=== PATIENT | female | born 1950 | race Caucasian/White ===

== ENCOUNTER 2018-11-10 05:35 | Day surgery (SDC) | payer MEDICARE, OTHER ==
[2018-11-06 11:53] LABS: BASOPHILS 0.6 % (0-2); EOSINOPHILS 3.2 % (0-7); HEMATOCRIT 41.9 % (36.0-48.0); HEMOGLOBIN 14.3 g/dL (12-16); IMMATURE GRANULOCYTES 0.1 % (0-5); MCH 31.3 pg (26.0-34.0); MCHC 34.1 g/dL (31.0-37.0); MCV 91.7 fL (80.0-100.0); MEAN PLATELET VOLUME 11.3 fL (7.4-10.4); MONOCYTES 5.5 % (2-11); NEUTROPHILS 56.6 % (40-80); PLATELET COUNT 260 10x3/uL (130-400); RBC 4.57 10x6/uL (4.00-5.40); WBC 7.1 10x3/uL (4.8-10.8)
[2018-11-06 12:02] LABS: ANION GAP 10.8 mmol/L (8-16); CALCIUM 9.2 mg/dL (8.5-10.1); CREATININE - SERUM 0.9 mg/dL (0.6-1.3); POTASSIUM - SERUM 3.8 mmol/L (3.5-5.1)
[~2018-11-10] VITALS: Ht 157.5 cm; Wt 62.3 kg
[2018-11-10] VITALS (7 sets, daily range): BP systolic 112–132; BP diastolic 64–71; Ht 157.5 cm; Wt 62.3 kg
[~2018-11-10 05:35] MED LIST: LISINOPRIL10 MG PO; ORACEA40 MG PO; TRAZODONE HYDROCHLOR PO
[2018-11-10] MEDS ORDERED: MACROBID100 MG PO (06:23)
--- NOTE | 2018-11-10 12:38 | NUR ---
ATTEMPTED TO CALL REPORT TO [facility]. CHARGE NURSE STATED THERE WERE NO BEDS AVAILABLE AT THE MOMENT.
--- NOTE | 2018-11-10 13:30 | NUR ---
RECEIVED PT FROM POST A & P REPAIR BY DR. MOSQUEDA. PT IS TRANSFERRED TO BED FROM STRETCHER, WITH MINIMAL ASSIST. PT'S ABODMEN PALPATES SOFT. SCANT DARK RED VAG BLEEDING NOTED ON CHUX THAT WAS ON STRETCHER, UPON TRANSFER TO BED IN #1257. PT HAS BORDEN CATH IN PLACE DRAINING BLUE URINE, SCD'S ON. PT DENIES NAUSEA, OR SOB, OR DIFFICULTY BREATHING. VS STABLE. SEE FLOWSHEET FOR ASSESSMENT. PT RATING PAIN 3/10, TO VAGINAL/SUPRAPUBIC AREA, DESCRIBES PRESSURE/PULLING PAIN. EXPLAINED TO PT WILL REVIEW MED ADM ORDERS. ORIENTED TO ROOM, SR UP X 2, CALL LIGHT AND PHONE WITHIN REACH. REPORT GIVEN TO Avery LIU RN ASSUMING CARE OF PT.
--- NOTE | 2018-11-10 14:00 | NUR ---
REC'D PT AA&O X 4. PAIN ASSESSED. PT RATES PAIN 2/10. DENIES NEEDING PAIN INTERVENTIONS AT THIS TIME. BREATHSOUNDS CL/=, ABD SOFT, NON DISTENDED,BOWEL SOUNDS PRESENT X4. BORDEN CATH IN PLACE AND DRAINING VIA GRAVITY. APPROX 250ML BLUE COLORED URINE NOTED IN UROMETER. AMOUNT EMPTIED IN TO BORDEN FOR A TOTAL OF 500ML IN BAG CURRENTLY. PEDAL PULSES PRESENT X 2. PT CURRENTLY HAS SCD WEAPS IN PLACE BILATERALLY. WRAPS CONNECTED TO PUMP. PUMP TURNED ON AND FUNCTIONING. T/C/D AND INCENTIVE SPIROTMER TEACHING GIVEN. PT VEBALZIES UNDERSTANDING AND AGREEABLE. POC DISCUSSED W/PT. FRESH ICE CHIPS SERVED. FAMILY TO BEDSIDE. BED LOW, SIDE RAILS UP X 2. CALL LIGHT AND PHONE AT PT'S BEDSIDE.
--- NOTE | 2018-11-10 14:15 | NUR ---
PT LYING AWAKE IN BED VISITING W/GUESTS. DENIES PAIN OR NEEDS AT THIS TIME.
--- NOTE | 2018-11-10 15:31 | NUR ---
PT RINGS CALL LIGHT REPORTING INCREASED PAIN. REQUEST PAIN MEDICATION. 1MG DILUADID GIVEN SIVP. DENIES FURTHER NEEDS AT THIS TIME. REPORTS SHE HAD BEEN PERFORMING I.S. AND ABLE TO PULL 1400 W/ACKNOWLEGEMENT OF GOAL OF 1999.
--- NOTE | 2018-11-10 16:30 | NUR ---
ROUNDS MADE. PT REPORTS PAIN LEVEL IS BACK TO 2/10. DENIES NEEDS. APPROX 225ML BLUE URINE NOTED IN UROMETER AND DUMPED.
--- NOTE | 2018-11-10 17:31 | NUR ---
PT RINGS CALL LIGHT REPORTING SHE FEELS NAUSEATED. ZOFRAN 4MG SIVP GIVEN. FRESH ICE CHIPS SERVED. FAMILY AT BEDSIDE. BED LOW, SIDE RAILS UP X 2. CALL LIGHT AT PT'S SIDE.
--- NOTE | 2018-11-10 18:00 | NUR ---
PT RINGS CALL LIGHT. Igor JANE RN TO ROOM. PT'S IVAC SOUNDING. IV INFUSION COMPLETED. NEW ORDERS NEEDED. WILL CONTACT DR MONROE FOR ORDERS.
--- NOTE | 2018-11-10 18:15 | NUR ---
DR MONROE ON UNIT. ORDERS RECEIVED TO HANG NS AT RATE OF 125ML/HR.
--- NOTE | 2018-11-10 20:30 | NUR ---
SHIFT ASSESSMENT DONE, IV IN RIGHT HAND INTACT WITH NO REDNESS OR EDEMA INFUSING VIA PUMP NS AT 125 ML/HR PER MD ORDERS, PINK PAD CHANGED OUT DUE TO BETADINE ON IT, NO VAG BLEEDING NOTED, BORDEN CATH INTACT DRAINING METHYLINE BLUE URINE, PT REPORTS FLATUS, RATES FADY PAIN AND CRAMPING 10/19, REQUESTS PAIN MED AROUND 2129, INFORMED PT THAT I WILL BRING PAIN MED IN AROUND THAT TIME, VS OBTAINED, PT INST ON AND DEMONSTRATED I.S. WITH GOOD EFFORT, SCD'S ON AND WORKING PROPERLY, REQUESTED AND SERVED FRESH H20 AND CUP OF ICE, DENIES FURTHER NEEDS, BED IN LOW POSITION, SIDE RAILS X 2, CALL LIGHT IN REACH
--- NOTE | 2018-11-10 21:45 | NUR ---
OFFERED PT EITHER PAIN PILL OR DILAUDID, PT OPTED TO TAKE PAIN PILL AT THIS TIME DUE TO DILAUDID MAKING HER SICK FEELING EARLIER, REQUESTED AND SERVED ANA MARÍA FARFAN, INFORMED PT THAT I NEEDED TO ASK A FEW QUESTIONS FOR HER ASSESSMENT, PT VERBALIZES UNDERSTANDING
--- NOTE | 2018-11-10 21:47 | NUR ---
SHIFT ASSESSMENT WAS DONE AT 2029, BUT I DID NOT REALIZE ADMISSION ASSESSMENT WAS DUE TO BE DONE
--- NOTE | 2018-11-10 22:35 | NUR ---
PT AROUSES TO OPENING OF DOOR, DENIES NEEDS OR PAIN, BED IN LOW POSITION, SIDE RAILS X 2, CALL LIGHT IN REACH
[2018-11-11 00:30] VITALS: BP 120/75
--- NOTE | 2018-11-11 00:30 | NUR ---
PT AWAKE, VS OBTAINED, BORDEN CATH EMPTIED, DENIES PAIN, REQUESTED AND SERVED ICE CHIPS, FRESH H20, AND STRAWBERRY JELLO, PT DENIES FURTHER NEEDS, BED IN LOW POSITION, SIDE RAILS X 2, CALL LIGHT IN REACH
--- NOTE | 2018-11-11 01:24 | NUR ---
SHIFT REPORT TO MARCIA MENDOZA RN
--- NOTE | 2018-11-11 02:32 | NUR ---
ROUNDS COMPLETED, NS 1000ML BAG HUNG AND INFUSING AT 125ML/HR. PT ROUSES TO VERBAL STIMULI, DENIES PAIN OR NEED FOR PAIN MEDS, RESP EVEN AND UNLABORED, BORDEN CATHETER TO GRAVITY DRAINAGE WITH URINE NOTED IN TUBING AND COLLECTION CHAMBER, CALL LIGHT IN EASY REACH. CONTINUE TO MONITOR.
[2018-11-11 04:30] VITALS: BP 108/61
--- NOTE | 2018-11-11 04:32 | NUR ---
AM ROUNDS COMPLETED, PT ROUSES ON ENTRY TO ROOM, RESP EVEN AND UNLABORED, VSS, AFEBRILE, CONVERSANT, ORIENTED X3, C/O PAIN "5 OR 6" ON NUMERIC PAIN SCALE, PO MED GIVEN REQUESTED WITH SIPS WATER. EMPTIED CATHETER OF 650ML POWDER BLUE URINE, REPOSITIONED PT TO COMFORT, DENIES OTHER NEEDS AT THIS TIME, CALL LIGHT IN EASY REACH, BED IN LOW POSITION, BED BRAKES LOCKED. WILL MONITOR.
--- NOTE | 2018-11-11 06:00 | NUR ---
DR MOSQUEDA PHONES UNIT, ORDERS RECEIVED FOR PT TO HAVE REGULAR DIET, LEAVE BORDEN IN TODAY UNTIL 12 NOON, STATES WILL BE ROUNDING THIS AM AROUND 7AM. ORDERS VERIFIED VIA TORB.
--- NOTE | 2018-11-11 06:18 | NUR ---
ROUNDS COMPLETED, COFFEE PROVIDED ALONG WITH A BIBLE PER PT REQUEST. DENIES PAIN OR OTHER NEEDS. RELAYED MD ORDER FOR REGULAR DIET, PT SMILES AND STATES "OH GOOD." CALL LIGHT IN EASY REACH; WILL MONITOR FOR NEEDS/CONCERNS/CHANGE IN CONDITION.
[2018-11-11 08:05] VITALS: BP 119/71
--- NOTE | 2018-11-11 08:05 | NUR ---
THIS RN TO ROOM FOR SHIFT ASSESSMENT. PT SITTING UP IN BED, AAOx3, PLEASANT. PT DENIES PAIN. SHIFT ASSESSMENT COMPLETE, VSS, SEE FLOWSHEET FOR DOC. IV INFUSING ORDERED TO PT'S RIGHT HAND PIV. SLIGHT BRUISING NOTED NEAR IV SITE. PT DENIES ANY COMPLAINTS OF PAIN AT SITE. WILL CONT TO MONITOR SITE. VAG PACKING IN PLACE. NO BLEEDING NOTED TO PERIPAD. BORDEN CATH DRAINING CLEAR PALE BLUE URINE TO BEDSIDE DRAINAGE, 400ML EMPTIED FROM UROMETER. SCD'S ON LE BILAT. PEDAL PULSES 2+ BILAT. ICE WATER PROVIDED TO PT, POC DISCUSSED. PT DENIES NEEDS. SRUx2, CL IN REACH. WILL CONT TO MONITOR.
--- NOTE | 2018-11-11 08:57 | NUR ---
DR MOSQUEDA PHONES UNIT FOR UPDATE ON PT, REPORT GIVEN. DR MOSQUEDA INFORMED PT IS REQUESTING TO RESTART HOME MED LISINOPRIL. ORDER RECEIVED TO RESTART HOME MEDS. STATES HE WILL ROUND ON PT MID-DAY. WILL PROCEED ORDERED.
--- NOTE | 2018-11-11 09:29 | NUR ---
PT ADMIN LISINOPRIL ORDERED, SEE EMAR FOR DOC. IV SALINE LOCKED ORDERED. PT DENIES PAIN OR NEEDS AT THIS TIME. SRUx2, CL IN REACH.
--- NOTE | 2018-11-11 10:00 | NUR ---
PT CALLS OUT AIRFRAME TECHNICAL OFFICER LIGHT REQUESTING SCD'S OFF TO AMBULATE IN ROOM. THIS RN TO ROOM. SCD'S REMOVED FOR OOB ACTIVITY. BORDEN BAG EMPTIED. DISPOSABLE PANTIES PLACED ON PT TO HOLD PERIPAD IN PLACE, BORDEN TUBING THROUGH LEG OF PANTIES. PT STANDS AT BEDSIDE, DENIES FEELING DIZZY OR LIGHTHEADED. PT AMBULATES IN ROOM WITH BORDEN BAG IN HAND. PT DENIES NEED FOR ASSIST, STATES "I FEEL GREAT, IT'S GOOD TO GET OUT OF BED." PT INSTRUCTED TO CALL FOR ANY NEEDS. WILL CONT TO MONITOR.
--- NOTE | 2018-11-11 11:11 | NUR ---
THIS RN TO ROOM FOR PT CHECK. PT SITTING UP IN BED, WATCHING TV. PT DENIES PAIN OR ANY NEEDS. 150ML CLEAR YELLOW URINE EMPTIED FROM UROMETER. PT STATES HER DAUGHTER SHOULD BE TO HOSPITAL SOON TO SEE HER. SRUx2, CL IN REACH. WILL CONT TO MONITOR.
--- NOTE | 2018-11-11 12:48 | OP ---
PATIENT NAME: JOSE MARTIN ABRAHAM MEDICAL RECORD: [id number] :49 [facility]ATION:[id number] ADMISSION DATE: SURGEON: RAY MOSQUEDA MD DATE OF OPERATION: 11/10/2018 PREOPERATIVE DIAGNOSIS: Cystocele. POSTOPERATIVE DIAGNOSES: 1. Cystocele. 2. Enterocele. PROCEDURES PERFORMED: 1. Anterior colporrhaphy. 2. Enterocele repair. 3. Cystoscopy. SURGEON: Ray Mosqueda MD ANESTHESIOLOGIST: Dr. Ross. ANESTHESIA: General. FINDINGS: Anterior defect prolapsing to the introitus. At the time of anterior vault dissection, hernia sac with small bowel encountered. Vaginal mucosa is unremarkable. SPECIMEN REMOVED: 1. Peritoneum. 2. Vaginal mucosa. SPECIMEN DISPOSITION: Pathology. ESTIMATED BLOOD LOSS: 100. URINE: 150 cc of clear urine. FLUIDS: 750 cc of Lactated Ringer's. COMPLICATIONS: None. DRAINS: Vincent to gravity. INDICATIONS: The patient is a 67-year-old female with complaints of pelvic pressure and prolapse. The patient has been evaluated and found to have an anterior compartment defect. The patient was consented for anterior repair and any indicated procedure. DESCRIPTION OF PROCEDURE: After informed consent was assured, patient was taken to the operating room where anesthetic was obtained. The patient was placed in candycane stirrups and prepped and draped. A weighted speculum was introduced in the vagina and the anterior defect noted. The inferior margin of this defect was grasped with an Allis clamp at the vaginal cuff and another Allis clamp was placed 1.5 cm behind the urethral meatus. The anterior space was injected with 0.5% lidocaine solution with epinephrine. After this had been performed, a 15 blade was used to make a vertical incision in the vaginal mucosa overlying the OPERATIVE REPORT [id number] JOSE MARTIN ABRAHAM defect. Using Metzenbaum scissors, the full dermal thickness dissection begins. The dermis was mobilized. Using cottonoids, blunt dissection as well as sharp dissection was utilized to mobilize the vaginal mucosa from the anterior defect. A central defect was encountered. Dissection to the apex of this defect revealed enterocele. The hernia sac was entered and the bowel displaced anteriorly. Using Allis clamps, the uterosacral ligaments were grasped approximately 2-3 cm from the cuff and Ethibond 2-0 stitch was used to plicate the ligaments. This structure was secured to the vaginal cuff. The hernia sac was removed and a pursestring stitch was applied. Endopelvic fascia was now closed from posteriorly to anteriorly. This was facilitated with 3-0 Vicryl interrupted stitches. A second layer was applied to reduce the cystocele completely. Excess mucosa was removed and a cystoscopy was now performed. Cystoscopy revealed both ureters to be patent with good efflux of methylene blue bilaterally. The cystoscopy was discontinued. Bladder drained and Vincent catheter started. Vaginal packing was placed. This packing will be in for 24 hours. Sponge, lap and needle count was correct times 2 at the close of this procedure. TRANSINT:[id number] Voice Confirmation ID: [id number] DOCUMENT ID: [id number] RAY MOSQUEDA MD at 1248 CC: [id number] DICTATION DATE: 11/10/18 1228 AXLE BEARING POLISHER: 11/10/18 1247 [facility] [address] [place] [address]
--- NOTE | 2018-11-11 13:00 | NUR ---
THIS RN TO ROOM WITH DR MOSQUEDA FOR ROUNDING. ORDER RECEIVED TO REMOVE BORDEN CATH AND VAG PACKING, AND D/C IV. DR MOSQUEDA STATES IF PT IS ABLE TO VOID AFTER BORDEN REMOVAL, SHE MAY D/C TO HOME. WILL PROCEED ORDERED.
[2018-11-11 13:05] VITALS: BP 129/71
--- NOTE | 2018-11-11 13:05 | NUR ---
RIGHT HAND IV D/C'D PER ORDER. PRESSURE HELD AND BANDAID APPLIED. BORDEN CATH REMOVED, APPROX 12-13ML FLUID NOTED IN BULB. VAG PACKIN REMOVED, NOTED TO HAVE SCANT AMOUNT BRIGHT RED BLOOD ON PACKING. NEW PERIPAD PLACED, PT PROVIDED WITH NEW DISPOSBALE PANTIES. PT STATES SHE WILL TRY TO GET UP TO VOID SOON. VSS, SEE FLOWSHEET FOR DOC. WILL CONT TO MONITOR.
--- NOTE | 2018-11-11 13:20 | NUR ---
PT CALLS OUT COSTUME CUTTER LIGHT STATING SHE VOIDED, AND PASSED A SMALL BLOOD CLOT. THIS RN TO ROOM. PT NOTED TO HAVE VOIDED 200ML CLEAR YELLOW URINE IN URINE HAT. PEA SIZED CLOT NOTED IN TOILET ON TOILET PAPER. PT REASSURED, INSTRUCTED TO MONITOR VAGINAL BLEEDING AND REPORT ANYTHING MORE THAN SPOTTING. UNDERSTANDING VERBALIZED.
--- NOTE | 2018-11-11 13:40 | NUR ---
DR MOSQUEDA NOTIFIED PT HAS VOIDED. ORDER RECEIVED TO D/C TO HOME.
[2018-11-11] MEDS ORDERED: PERCOCET 5-3251 TAB PO (13:52)
--- NOTE | 2018-11-11 14:15 | NUR ---
PT GIVEN D/C INSTRUCTIONS AND WRITTEN PRESCRIPTION FOR PAIN CONTROL POST D/C TO HOME WRITTEN BY DR MOSQUEDA. PT REFUSES W/C, STATES SHE WOULD LIKE TO WALK OUT. PT AMBULATES OFF UNIT WITH DAUGHTER, INSTRUCTIONS IN HAND. PT'S DAUGHTER TO DRIVE HER HOME.
== END 2018-11-11 14:15 | disposition home or self-care (01) ==
LOC: D.OPS 05:35 → D.PAN 07:30 → D.OPS 07:30 → D.LD 11:41 → D.OPS 11-11 14:15
PROVIDERS: ATTEND Obstetrics & Gynecology
DX: N81.10 Cystocele, unspecified (principal); N81.5 Vaginal enterocele; Z01.812 Encounter for preprocedural laboratory examination